=== PATIENT | female | born 1980 | race Caucasian/White ===

== ENCOUNTER 2018-07-03 07:48 | Emergency (ER) | payer OTHER ==
[2018-07-03 08:14] VITALS: BP 123/68
--- NOTE | 2018-07-03 09:18 | UC ---
UC General HPI - HPI Summary HPI Summary: pt presents for evaluation of mild sore throat, chills, and diaphoresis this am. she also stated that she has mild nausea this am. - History of Current Complaint Chief Complaint: UCGeneralIllness Stated Complaint: SORE THROAT SWEATING HEADACHE Hx Obtained From: Patient Hx Last Menstrual Period: 06/05/18 Onset/Duration: Lasting Days Onset Severity: Mild Current Severity: Mild Pain Intensity: 4 - Allergy/Home Medications Allergies/Adverse Reactions: Allergies Allergy/AdvReac Type Severity Reaction Status Date / Time sertraline Allergy Anxiety Verified 07/03/18 08:11 Tetanus Vaccines and Toxoid Allergy Localized Verified 07/03/18 08:11 Swelling Only Home Medications: Home Medications Phendimetrazine Tartrate 35 mg PO TID 07/03/18 [History Confirmed 07/03/18] PMH/Surg Hx/FS Hx/Imm Hx Previously Healthy: Yes Other History Of: Negative For: HIV, Hepatitis B, Hepatitis C, Anticoagulant Therapy - Surgical History Surgical History: Yes Surgery Procedure, Year, and Place: ectopic - Social History Alcohol Use: None Substance Use Type: None Smoking Status (MU): Never Smoked Tobacco Type: Cigarettes Amount Used/How Often: 3 CIGS PER DAY Review of Systems All Other Systems Reviewed And Are Negative: No Constitutional: Positive: Chills, Fatigue. Negative: Fever Skin: Negative: Rash, Bruising Eyes: Negative: Eye Redness ENT: Positive: Sore Throat. Negative: Nasal Discharge Respiratory: Negative: Shortness Of Breath, Cough Cardiovascular: Negative: Palpitations, Chest Pain Gastrointestinal: Positive: Nausea. Negative: Abdominal Pain, Vomiting, Diarrhea Genitourinary: Negative: Hematuria, Frequency, Urgency Motor: Negative: Decreased ROM, Weakness Musculoskeletal: Negative: Edema Neurological: Negative: Headache, Weakness Is Patient Immunocompromised?: No Physical Exam Triage Information Reviewed: Yes Completion Of Physical Exam Limited Due To: Altered Mental Status Appearance: Well-Appearing, No Pain Distress, Well-Nourished Vital Signs: Initial Vital Signs Temp 97.9 F 07/03/18 08:08 Pulse 68 07/03/18 08:08 Resp 16 07/03/18 08:08 BP 123/68 07/03/18 08:08 Pulse Ox 97 07/03/18 08:08 Vital Signs Reviewed: Yes Eye Exam: Normal ENT Exam: Normal Dental Exam: Normal Neck exam: Normal Respiratory: Positive: Chest non-tender, Lungs clear, Normal breath sounds, No respiratory distress, No accessory muscle use Cardiovascular Exam: Normal Abdomen Description: Positive: Nontender, Soft Bowel Sounds: Positive: Present Musculoskeletal Exam: Normal Neurological Exam: Normal Psychological Exam: Normal Skin Exam: Normal Course/Dx - Course Course Of Treatment: cxr negative. influenza a/b negative. encouraged pt to take tylenol and motrin for pain. return if worse or any new symptoms. - Diagnoses Provider Diagnosis: Viral syndrome Discharge - Sign-Out/Discharge Documenting (check all that apply): Patient Departure All imaging exams completed and their final reports reviewed: No Studies - Discharge Plan Condition: Stable Disposition: HOME Patient Education Materials: Viral Syndrome (ED) Referrals: Latoya Fortune MD [Primary Care Provider] - Additional Instructions: follow up with your primary care physician next week. return if worse or any new symptoms. Take tylenol 650mg and motrin 600mg by mouth for fever, chills and body aches. - Billing Disposition and Condition Condition: STABLE Disposition: Home
== END 2018-07-03 09:24 | disposition home or self-care (01) ==
LOC: UCCORT 07:48
DX: B34.9 Viral infection, unspecified (principal); Z88.8 Allergy status to other drugs, medicaments and biological substances; Z88.7 Allergy status to serum and vaccine
CPT/HCPCS: 71046; 99211; G0463